=== PATIENT | female | born 1975 | race African-American/Black ===

== ENCOUNTER 2023-11-01 04:17 | Emergency (ER) | payer OTHER ==
[~2023-11-01] VITALS: Ht 160 cm; Wt 81.8 kg
[2023-11-01 04:23] VITALS: BP 132/79; PULSE 74; RESP 16; O2SAT 97
[2023-11-01 06:56] LABS: Urine Bacteria None Seen /hpf (None Seen)
[2023-11-01 07:07] LABS: Urine Blood Negative /uL (Negative); Urine Clarity Clear (Clear); Urine Color Light-Yellow (Yellow); Urine Mucus FEW (None Seen); Urine Protein, UAD Negative (Negative); Urine Specific Gravity 1.029 (1.001-1.035); Urine Urobilinogen Normal (Negative); Urine WBC 3 /hpf (0 - 5); Urine pH 5.5 (5.0-9.0)
== END 2023-11-01 07:07 | disposition left against medical advice (07) ==
LOC: ER 04:17
DX: R10.11 Right upper quadrant pain (principal)
CPT/HCPCS: 81001